=== PATIENT | female | born 1965 | race Caucasian/White ===

== ENCOUNTER → 2019-04-10 | Outpatient (REF) | payer OTHER ==
[2019-04-10 19:24] LABS: PLATELET COUNT, AUTOMATED 320 10^3/uL (150-450)
[2019-04-10 19:48] LABS: INR 0.99; PROTHROMBIN TIME 12.8 SECONDS (11.8-14.0)
[2019-04-10 19:49] LABS: PARTIAL THROMBOPLASTIN TIME 24.9 SECONDS (25.0-38.4)
== END ==
LOC: M LABDRAW1 17:20
PROVIDERS: ATTEND Physician Assistant
DX: Z01.812 Encounter for preprocedural laboratory examination (principal); M47.22 Other spondylosis with radiculopathy, cervical region

== ENCOUNTER → 2021-01-16 | Outpatient (CLI) | payer OTHER ==
[2021-01-16 14:47] LABS: HEMATOCRIT 38.6 % (36.0-47.0); HEMOGLOBIN 12.1 g/dl (12.0-15.5); MEAN CORPUSCULAR HEMOGLOBIN 30.8 pg (27.0-33.0); MEAN CORPUSCULAR HGB CONC 31.3 g/dl (32.0-36.5); MEAN CORPUSCULAR VOLUME 98.2 fl (80.0-96.0); PLATELET COUNT, AUTOMATED 308 10^3/uL (150-450); RED BLOOD COUNT 3.93 10^6/uL (4.00-5.40); WHITE BLOOD COUNT 6.8 10^3/uL (4.0-10.0)
[2021-01-16 15:16] LABS: ALBUMIN 3.6 GM/DL (3.2-5.2); ALT/SGPT 24 U/L (12-78); BILIRUBIN,TOTAL 0.2 MG/DL (0.2-1.0); BLOOD UREA NITROGEN 17 MG/DL (7-18); CALCIUM LEVEL 8.6 MG/DL (8.5-10.1); CARBON DIOXIDE LEVEL 26 MEQ/L (21-32); CHLORIDE LEVEL 111 MEQ/L (98-107); CREATININE FOR GFR 0.57 MG/DL (0.55-1.30); GLOMERULAR FILTRATION RATE > 60.0 (>51); GLUCOSE, FASTING 96 MG/DL (70-100); POTASSIUM SERUM 4.1 MEQ/L (3.5-5.1); SODIUM LEVEL 141 MEQ/L (136-145); TOTAL PROTEIN 7.2 GM/DL (6.4-8.2)
== END ==
LOC: M LAB 13:39
PROVIDERS: ATTEND Physician Assistant
DX: L93.0 Discoid lupus erythematosus (principal)

== ENCOUNTER → 2022-05-27 | Outpatient (CLI) | payer OTHER ==
[2022-05-27 14:57] LABS: HEMATOCRIT 41.8 % (36.0-47.0); HEMOGLOBIN 13.3 g/dl (12.0-15.5); MEAN CORPUSCULAR HEMOGLOBIN 32.4 pg (27.0-33.0); MEAN CORPUSCULAR HGB CONC 31.8 g/dl (32.0-36.5); MEAN CORPUSCULAR VOLUME 101.7 fl (80.0-96.0); PLATELET COUNT, AUTOMATED 303 10^3/uL (150-450); RED BLOOD COUNT 4.11 10^6/uL (4.00-5.40); WHITE BLOOD COUNT 6.4 10^3/uL (4.0-10.0)
[2022-05-27 17:34] LABS: ALBUMIN 4.2 G/DL (3.2-5.2); ALT/SGPT 14 U/L (7.0-40); BILIRUBIN,TOTAL 0.2 MG/DL (0.3-1.2); BLOOD UREA NITROGEN 16 MG/DL (9-23); CALCIUM LEVEL 9.4 MG/DL (8.5-10.1); CARBON DIOXIDE LEVEL 27 MMOL/L (20-31); CHLORIDE LEVEL 105 MMOL/L (98-107); CREATININE FOR GFR 0.66 MG/DL (0.55-1.30); GLOMERULAR FILTRATION RATE > 60.0 (>51); GLUCOSE, FASTING 87 MG/DL (60-100); POTASSIUM SERUM 4.3 MMOL/L (3.5-5.1); SODIUM LEVEL 141 MMOL/L (136-145); TOTAL PROTEIN 7.1 G/DL (5.7-8.2)
== END ==
LOC: M LAB 14:15
PROVIDERS: ATTEND Physician Assistant
DX: L93.0 Discoid lupus erythematosus (principal)

== ENCOUNTER → 2023-12-08 | Outpatient (REF) | payer OTHER | LOC: M SFHCDERM 14:52 | PROVIDERS: ATTEND Physician Assistant | DX: L93.0 Discoid lupus erythematosus (principal) ==

== ENCOUNTER → 2024-02-01 | Outpatient (REF) | payer OTHER | LOC: M SFHCDERM 18:00 | PROVIDERS: ATTEND Physician Assistant | DX: D21.11 Benign neoplasm of connective and other soft tissue of right upper limb, including shoulder (principal) ==